=== PATIENT | female | born 1950 | race Caucasian/White ===

== ENCOUNTER → 2024-03-23 08:51 | Outpatient (REF) | payer OTHER, SELFPAY | LOC: HWRAD 08:51 | PROVIDERS: ATTENDING PHYSICIAN Family Medicine | DX: E04.1 Nontoxic single thyroid nodule (principal) | CPT/HCPCS: 76536 ==

== ENCOUNTER 2024-08-11 12:43 | Inpatient (IN) | payer OTHER, SELFPAY ==
[2024-08-11 07:39] VITALS: BP 150/82
--- NOTE | 2024-08-11 08:41 | ED.GENMED ---
History of Present Illness
General
Chief Complaint: Breathing Problem
Source: patient
Time Seen by Provider: 08/11/24 07:56
History of Present Illness
History of Present Illness:
74-year-old female presents emergency room complaining of right-sided chest pain. Pain occurs when she takes a deep breath primarily. She has noted shortness breath with exertion. Patient does have a history of pulmonary embolism. She has had
actually 2 episodes. Patient was advised to stay on anticoagulation but apparently did not wish to do so. She denies any recent travel or hospitalizations. No hemoptysis. Pain radiates to the back sometimes. Right thoracic pain also somewhat
worsened with movements such as twisting.
Past History
Past History
ED Past Medical History: GERD, Psychiatric (depression) and Other (DVT, pulmonary embolism, lumbar stenosis, migraines, anemia)
ED Past Surgical History: Orthopedic
Social History
Tobacco: Non-smoker
Alcohol: None
Drug: None
Phy Exam
Physical Exam
Physical Exam:
General: Awake, Alert, Oriented X3. No acute distress.
Vitals: unremarkable
Head: Atraumatic
Eyes: Pupils equal, EOMI
Throat: Airway intact, no exudates
Neck: Trachea midline
Lungs: Clear and equal b/l
Heart: Regular rate, no murmurs
Abd: Soft, Nontender, No pulsatile mass
Neuro: Nonfocal
Skin: Warm, dry, no rash
Extremities: pulses equal b/l, no edema
Scores
Heart Failure Risk
Heart Failure Risk Score: Not Applicable
Course
Orders/Labs/Results
Orders:
Orders
08/11/24 07:43
EKG [Electrocardiogram (*1)] Urgent
Reason for Study: Chest Pain
EKG- Treatment ONCE
08/11/24 08:29
Complete Blood Count/With Diff Urgent
Comprehensive Metabolic Panel Urgent
NT-proBNP Urgent
Comment: ADD ON
Troponin I Urgent
08/11/24 08:40
CT Chest Pe Study Urgent
Comment:
Reason For Exam: r pleuritic chest pain
Ketorolac [Toradol] 15 mg IV NOW STA
08/11/24 Lunch
Regular
08/11/24 10:06
Heparin 6,600 units IV NOW STA
Nursing to Place Non Medication Order As Directed
Physician Order: PTT 6 hours after initial start of Heparin infusion
Above order entered?: Yes
08/11/24 10:15
Heparin 54948 Units/250 ml 25,000 units in 250 ml IV PER PROTOCOL
Weight to be used for heparin protocol in kilograms (kg):: 82.5
Protocol:: DVT/PE
PTT Goal Range to be used:: PTT 73 to 111 seconds
Order type:: Initial
INITIAL Infusion Dose (UNITS/KG/hr) & then follow protocol:: 18 units/kg/hr
Infusion Dose in UNITS/hr & then follow protocol (UNITS/hr):: 1,500
INFUSION RATE in mL/hr & then follow protocol (mL/hr):: 15
For DVT/PE algorithm, re-bolus for low PTT?: Yes
PTT less than or equal to 64 seconds:: Re-bolus 80 units/kg (max 10,000units). Increase by 300 units/hr
(+ 3mL/hr)
PTT 64.1 to 72.9 seconds:: Re-bolus 40 units/kg (max 5,000 units). Increase by 200 units/hr
(+ 2mL/hr)
PTT 73 to 111 seconds:: Target Range. No change in rate.
PTT 111.1 to 130.9 seconds:: Decrease rate by 200 units/hr (- 2 mL/hr)
PTT 131 to 199.9 seconds:: HOLD for 1 hr. Then decrease by 300 units/hr (- 3mL/hr)
PTT greater than or equal to 200 seconds:: HOLD for 2 hrs & Notify Provider. Then decrease by 300 units/hr
(- 3mL/hr)
Lab follow-up:: Each change, PTT q6h until 2 consecutive are therapeutic. Then
PTT daily.
08/11/24 10:19
PTT Urgent
Comment: Obtain baseline before beginning heparin infusion if not already collected
08/11/24 10:22
Heparin 6,600 units IV PRN PRN
08/11/24 10:23
Heparin 3,300 units IV PRN PRN
08/11/24 11:38
Code Status As Directed
Resuscitation Status: Full Code
08/11/24 11:39
Add On- LAB Stat
Tests Added?: proBNP
Admit Patient As Directed
Co-Sign Provider:
Level of Care: Inpatient admission
Assign to:: Telemetry
Physician / Group: Octavio Holcomb
Diagnosis: unprovoked PE
Reason for Telemetry: Other
Other Reason for Telemetry: Pulmonary embolism
Date to Stop Telemetry: 08/13/24
Time to Stop Telemetry: 11:00
Reason for Hospitalization: Unprovoked pulmonary embolism
Expected length of stay greater than two midnights?: Yes
ELOS- Estimated Length of Stay in days: 3
I certify the patient meets the requirements for IP care: Yes
Activity As Directed
Activity Level: As Tolerated
Intake/ Output As Directed
Frequency: Per unit guidelines
Vital Signs As Directed
Frequency: Per unit guidelines
PRN Pain Medication Management As Directed
May give lesser potent ordered pain med per pt: Yes
preference::
Protocol:: Medication orders for pain may be administered in a
manner that supports deferring to patient preference
when the pt is:
- Requesting an ordered lesser potent pain medication.
Least to most potent pain medications are defined
as: acetaminophen < NSAID < tramadol < opioids
(morphine, oxycodone, hydromorphone).
- Requesting a lesser dose of the same medication IF
ORDERED.
- Requesting a less intrusive route of administration
if both routes are prescribed by the provider (PO <
IV).
08/11/24 11:41
Pulse Ox/cont/shift [RESP] Routine
Quantity: 1
Special Instructions: check O2 Sat Q2 hours and at each change in oxygen liter flow and FiO2
08/11/24 11:42
Echo 2D MMode Color/Doppler Routine
Reason for Study: pulmonary embolism
HEMATOLOGY CONSULT Routine
Consulting Provider: Harmeet Gonzalez
Was physician already notified: Yes
Reason for consult: unprovoked PE
Acetaminophen [Tylenol] 650 mg PO Q4HPRN PRN
HYDROmorphone [Dilaudid] 0.5 mg IV Q4HPRN PRN
Morphine Sulfate 2 mg IV Q4HPRN PRN
Pt Eval And Treat Routine
Activity Level: As Tolerated
08/11/24 11:46
Admit/Transfer Patient As Directed
Co-Sign Provider:
Level of Care: Inpatient admission
Assign to:: Telemetry
Physician / Group: octavio holcomb
Diagnosis: Unprovoked pulmonary embolism
Reason for Telemetry: Other
Other Reason for Telemetry: Pulmonary embolism
Date to Stop Telemetry: 08/13/24
Time to Stop Telemetry: 11:00
Reason for Hospitalization: Unprovoked pulmonary embolism
Expected length of stay greater than two midnights?: Yes
ELOS- Estimated Length of Stay in days: 3
I certify the patient meets the requirements for IP care: Yes
PRN Pain Medication Management As Directed
May give lesser potent ordered pain med per pt: Yes
preference::
Protocol:: Medication orders for pain may be administered in a
manner that supports deferring to patient preference
when the pt is:
- Requesting an ordered lesser potent pain medication.
Least to most potent pain medications are defined
as: acetaminophen < NSAID < tramadol < opioids
(morphine, oxycodone, hydromorphone).
- Requesting a lesser dose of the same medication IF
ORDERED.
- Requesting a less intrusive route of administration
if both routes are prescribed by the provider (PO <
IV).
08/11/24 11:50
US Periph Venous LOWER Ext Giovani Urgent
Comment:
Reason For Exam: PE
08/11/24 12:06
PULMONARY CONSULT Routine
Consulting Provider: Ravi Hou
Was physician already notified: Yes
Reason for consult: acute PE
08/11/24 17:09
PTT Urgent
08/12/24 06:00
Complete Blood Count/No Diff IN AM
Comprehensive Metabolic Panel IN AM
08/12/24 08:00
Polyethylene Glycol Powder [Miralax] 17 grams PO DAILY
08/13/24 06:00
Complete Blood Count/No Diff IN AM
Comprehensive Metabolic Panel IN AM
08/13/24 11:00
DC Protocol for Telemetry ONCE
DC Protocol for Telemetry ONCE
Abnormal Lab Results
08/11/24
08:29
WBC 11.2 H 10^3/uL
(4.8-10.8)
RBC 3.96 L 10^6/uL
(4.20-5.40)
MCH 33.3 H pg
(27.0-31.0)
Absolute Neuts (auto) 8.0 H 10^3/uL
(1.4-6.5)
Absolute Monos (auto) 0.8 H 10^3/uL
(0.1-0.6)
Lymphocytes % 19.0 L %
(20.5-51.1)
BUN 18 H mg/dl
(7-17)
Total Protein 6.1 L g/dl
(6.3-8.2)
08/11/24 08:29
08/11/24 08:29
Vital Signs
Initial and Last Documented VS:
Initial Vital Signs
Temp Pulse Resp BP Pulse Ox
97.6 F 77 18 150/82 98
08/11/24 07:39 08/11/24 07:39 08/11/24 07:39 08/11/24 07:39 08/11/24 07:39
Last Documented Vital Signs
Temp Pulse Resp BP Pulse Ox
97.6 F 76 9 139/73 97
08/11/24 07:39 08/11/24 12:00 08/11/24 12:00 08/11/24 09:00 08/11/24 11:18
MDM/Problems Addressed
Differential Diagnosis Includes:
Pulmonary embolism thoracic strain, spontaneous pneumothorax, pneumonia
MDM/Problems Addressed:
Patient presents with some subjective shortness of breath particular with exertion as well as pleuritic chest pain. Patient does have a history of PEs. CT was obtained which shows bilateral pulmonary embolism. Radiology describes the tumor burden
is moderate. CT also shows a pulmonary infarct. Given the above the patient should be hospitalized for least 24 hours of observation.
*Radiology
Radiology exam reviewed: radiology read reviewed
*Pulse Oximetry
Patient hypoxic: no
*EKG
Interpreted by ED Provider?: Yes
Heart Rate: 75
Rate: normal
Rhythm: sinus
[place]: normal axis
Interval: normal interval
QRS Pattern: normal QRS
Ischemia: no ischemia
*Nursing Home Assistant Interpretation
Rate: normal
Interpretation: normal
Rhythm: sinus
*Critical Care Note
Total Time (30-74mins, 75-104mins- exclusive of procedures): Not Applicable
Patient Management
Discussion with other providers: Hospitalist
ED Attending Note
-
Portions of this chart may have been created with voice recognition software.� Occasional wrong word or��sound alike� substitutions may have occurred due to the inherent limitations of voice recognition software.
Discharge Plan
Departure
Patient Disposition: Admit
Date of Disposition: 08/11/24
Time of Disposition: 10:10
Admit to: IMU
Presentation/result/management discussed w/ accepting MD/DO: Hospitalist
Condition: Fair
Discharge Problem:
Pulmonary embolism and infarction
Interventions
Interventions:
*Risk Screen - Suicide Last Done: 08/11/24 07:39
*General Assessment Last Done: 08/11/24 07:39
*Neglect/Abuse Screening Last Done: 08/11/24 07:39
ED- Fall Risk Assessment Last Done: 08/11/24 11:18
*ED COVID-19 Vaccine History Last Done: 08/11/24 07:39
*Nursing Disposition Last Done: 08/11/24 13:04
ED- Cardiac Assessment Last Done: 08/11/24 11:18
ED- Pulmonary Assessment Last Done: 08/11/24 11:18
Discharge Date and Time
Discharge Date/Time: 08/11/24 13:06
[2024-08-11 08:46] LABS: % Basophils 0.7 % (0-2); % Eosinophils 1.9 % (0-6); % Immature Granulocytes 0.4 % (0-0.5); % Monocytes 6.8 % (1.7-9.3); % Neutrophils 71.2 % (42.2-75.2); Absolute Basophils 0.1 10^3/uL (0-0.2); Absolute Eosinophils 0.2 10^3/uL (0-0.7); Absolute Lymphocytes 2.1 10^3/uL (1.2-3.4); Absolute Monocytes 0.8 10^3/uL (0.1-0.6); Hematocrit 39.1 % (37.0-47.0); Hemoglobin 13.2 g/dL (12.0-16.0); Mean Corp Hgb Conc. 33.8 g/dL (33.0-37.0); Mean Corpuscular Hgb 33.3 pg (27.0-31.0); Mean Corpuscular Volume 98.7 fL (81.0-99.0); Mean Platelet Volume 9.7 fL (7.4-10.4); Nucleated Red Blood Cells % 0 %; Platelet Count 261 10^3/uL (130-400); Red Blood Cell Count 3.96 10^6/uL (4.20-5.40); Red Cell Dist. Width 13.1 % (11.5-14.5); White Blood Cell Count 11.2 10^3/uL (4.8-10.8)
[2024-08-11 08:55] LABS: ALT (SGPT) 21 U/L (0-35); AST (SGOT) 28 U/L (14-36); Albumin 3.5 g/dl (3.5-5.0); Alkaline Phosphatase 122 U/L (38-126); Blood Urea Nitrogen 18 mg/dl (7-17); Calcium 9.1 mg/dl (8.4-10.2); Carbon Dioxide 28 mmol/L (22-30); Chloride 104 mmol/L (98-107); Glucose 98 mg/dl (70-99); Potassium 4.1 mmol/L (3.5-5.1); Sodium 142 mmol/L (135-145); Total Bilirubin 0.4 mg/dl (0.2-1.3); Total Protein 6.1 g/dl (6.3-8.2); eGFR > 60.00
[2024-08-11 09:00] VITALS: BP 139/73
[2024-08-11] MEDS: TORADOL 15 MG IV (09:02)
[2024-08-11 09:06] LABS: Troponin I < 0.012 ng/ml
[2024-08-11 10:04] VITALS: BMI 30.3
[2024-08-11 10:43] LABS: APTT 28.5 Sec (23.4-35.0)
[2024-08-11] MEDS: HEPARIN 6600 UNITS IV (11:06)
[2024-08-11] MEDS: HEPARIN 25000 UNITS/250 ML IV (11:09)
--- NOTE | 2024-08-11 11:34 | HPS.HSE ---
Addendum entered and electronically signed by Octavio Anguiano MD 08/11/24 17:45:
74 female history of VTE x 2 in the past IBS and anxiety GERD who presents with acute onset chest discomfort shortness of breath that began yesterday in the morning and progressively got worse throughout the day. Without improvement. Denies
history of malignancy trauma OCP smoking. Admits to son being diagnosed with factor V Leyden however she was negative for this.
CT demonstrating mild bilateral pulmonary thromboembolism extending from the lobar into the segmental/subsegmental branches of the bilateral lungs. Without evidence of hypoxia. She had 1 episode with a respiratory rate of 32 per EMR documentation.
CBC BMP unremarkable. Troponin negative.
Physical Exam
NAD, resting comfortably in bed
Scleral anicteric
Moist mucous membranes
No JVD
CTA bilateral
Normal S1-S2 no murmurs
Soft nontender nondistended bowel sounds active
Left leg slightly more than right leg
Moves extremities spontaneously
AAOx3
Assessment and Plan
Acute PE, unprovoked
-Pesi score 93, intermediate risk, Class III 3.2-7.1% 30day mortality
-Check DVT Study
-Check 2d echo assess for right heart strain
-Hep gtt with plans to transition to PO DOAC
-Will need outpatient Heme follow up for hypercoag work up
-Will likely need to remain on lifelong therapy
-Outpatient age appropriate cancer screening
GERD
-Continue PPI
Migraine
-Cotnnue Wellbutrin,Aimovig,Topamax
Original Note:
Family Physician
-
Family Physician: Marsha Willoughby
Chief Complaint
-
Unprovoked pulmonary embolism
History of Present Illness
74 female past medical history of 2 provoked PEs and 1 provoked DVT presents to the emergency department with 1 day of shortness of breath and chest pain.Other past medical history includes migraines, depression/anxiety, GERD and arthritis. She
previously had a conversation about taking lifelong anticoagulation, however it was decided that she would only take 6 months of anticoagulation. At the time of admission she is not on anticoagulation at home. She reports that her son has factor V
Leiden mutation, however her hypercoagulable workup was negative previously. In the emergency department patient had a CT PE study which demonstrated moderate bilateral pulmonary thromboembolus extending from the lobar into segmental/subsegmental
branches of the bilateral lung, as well as an upper left lobe pulmonary infarct. Patient was started on IV heparin.
Medical History
Past Medical History
Past Medical History: Reports GERD and Other (Remote DVT during approximately 40 years ago, DVT/PE in 2011-provoked, PE 2021-provoked. GERD, depression, lumbar stenosis, migraines)
Past Surgical History: Reports Orthopedic
Social History
Tobacco: Former Smoker
Alcohol: Occasional
Drug: None
Family History
Family History: Not pertinent
Allergies / Home Medications
Allergies reflects when Allergies were last updated in [facility].
Home Medications with original date entered in [facility]
Allergy/Medication List:
Allergies
Allergy/AdvReac Type Severity Reaction Status Date / Time
Nitrate Analogues Allergy MIGRAINES Verified 08/11/24 07:41
shrimp Allergy JUMBO-MIGRA Verified 08/11/24 07:41
NIKIA
Home Medications
biotin 2,500 mcg capsule 5,000 mcg PO DAILY Supplement ##0 10/11/13
bupropion HCl 300 mg 24 hr tablet, extended release 300 mg PO DAILY depression/anxiety 10/11/13
calcium 250 mg (as carbonate)-vitamin D3 3.125 mcg (125 unit) tablet (Oyster Shell + D3) 1 tab PO DAILY Supplement 10/11/13
calcium polycarbophil 625 mg tablet (FiberCon) 1,250 mg PO DAILY Constipation 10/11/13
esomeprazole magnesium 40 mg capsule,delayed release (Nexium) 40 mg PO HS Gastrointestinal issue 10/11/13
multivitamin 1 tab PO DAILY Supplement 10/11/13
erenumab-aooe 140 mg/mL subcutaneous auto-injector (Aimovig Autoinjector) 140 mg SC QMONTH Migrane-due 08/13/24 08/23/22
celecoxib 200 mg capsule (Celebrex) 200 mg PO DAILY pain 11/19/22
lysine 1,000 mg tablet 1,000 mg PO SUTUTHSA Supplement 11/19/22
potassium gluconate 550 mg tablet 1,100 meq PO PRN PRN supp 11/19/22
zolmitriptan 5 mg nasal spray 1 spray intranasal Q2H PRN headache 11/19/22
Lactobacillus acidophilus (Acidophilus chewable tablet) 1 tab PO SUTUTHSA probiotic 08/11/24
hydrocodone 5 mg-acetaminophen 325 mg tablet 1 tab PO BIDPRN PRN arthritis pain 08/11/24
Review of Systems
-
A 12 point ROS was completed and negative except as noted: No
Constitutional: Reports No Symptoms
Respiratory: Reports Other (Shortness of breath worse with exertion, pleuritic chest pain); Denies Hemoptysis
Cardiac: Reports No Symptoms
Abdomen/GI: Reports No Symptoms
: Reports No Symptoms
Physical Exam
Vital Signs
Vital Signs
Temp Pulse Resp BP Pulse Ox
97.6 F 79 21 139/73 97
08/11/24 07:39 08/11/24 11:00 08/11/24 11:00 08/11/24 09:00 08/11/24 11:18
Physical Exam
General: Well Developed, Well Nourished, No Apparent Distress, Comfortable and Conversant
Respiratory: Clear
Cardiac: S1/S2 and Regular Rhythm
GI: Soft, Non Tender and Non Distended
Musculoskeletal: No Edema and Other (Negative Homans' sign, lower extremities nontender)
Skin: Warm and Dry
Neuro: Awake, Alert, Oriented and AO x 3
Psych: Calm and Intact Judgment/Insight
Laboratory Results
-
08/11/24 08:29
08/11/24 08:29
Laboratory Results
APTT 28.5 Sec (23.4-35.0) 08/11/24 10:19
Total Bilirubin 0.4 mg/dl (0.2-1.3) 08/11/24 08:29
AST 28 U/L (14-36) 08/11/24 08:29
ALT 21 U/L (0-35) 08/11/24 08:29
Alkaline Phosphatase 122 U/L (38-126) 08/11/24 08:29
Troponin I < 0.012 ng/ml 08/11/24 08:29
Data Reviewed
-
CT Scan: Report Reviewed by me and Discussed with Physician
Lab Data: Labs Reviewed by me and Discussed with Physician
Impression/Plan
-
IMPRESSION:
72-year-old female with past medical history of multiple provoked DVT/PE currently not on anticoagulation presents for shortness of breath and found to have an unprovoked pulmonary embolism.
PLAN:
#Unprovoked pulmonary embolism
CT demonstrated segmental/subsegmental pulmonary embolism with upper left lobe infarct
IV heparin drip per DVT protocol
Hematology consult pending
Pulmonology consult pending
Every 2 hour pulse ox checks
Currently not requiring oxygen, satting well on room air
Pain management with Tylenol, morphine and Dilaudid as needed
2D echo pending
Admit to telemetry
PT OT
#GERD
Continue home pantoprazole daily
#Anxiety/depression
Continue home bupropion extended release
DVT prophylaxis: Heparin drip
Diet: Regular
CODE STATUS: Full code
[2024-08-11 13:11] VITALS: BP 152/79
[2024-08-11 13:12] LABS: NT-proBNP 126 pg/ml
--- NOTE | 2024-08-11 13:12 | CON.PUL ---
Consultation
Consultation Request
Date/Time Consultation Requested: 08/11/2024 - 1206
Date/Time Consultation Performed: 08/11/2024 - 2
Requesting Provider: Dr. Anguiano
Performing Provider: Dr. Hou
Reason for Consultation: Acute PE
Medical History
-
Chief Complaint: Shortness of breath + left-sided chest pain
History of Present Illness:
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
presents with shortness of breath and left-sided chest pain. She says that the chest pain starts right near her left breast and radiates to the back, feeling similar to when she had her last pulmonary embolism in 2021. Back in 2021, she also had a
right lower extremity DVT and was treated with Eliquis for 6 months. She saw hematology (she is not sure who exactly she saw) and she eventually was taken off AC although her PCP wanted her to stay on it. Her prior PE before that was in 09/2012
and she also had a DVT at that time as well. She believes she was treated with Xarelto at the time. She is not sure if she had a DVT in that same leg as in 2021. She currently denies any leg pain. She personally does not have any history of
cancer. She denies a family history of clots although her son has factor V Leiden and is chronically on anticoagulation that she believes is Xarelto. 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 In the ER she was afebrile to 97.6 �F, pulse rate 77, breathing at 18 breaths/min, BP 150/82 and saturating 98% on room air. Labs showed mild leukocytosis to 11.2, troponin negative at
<0.012, and proBNP 126. CTA chest was done showing moderate bilateral pulmonary embolism extending from the lobar into the segmental/subsegmental branches of both lungs with a suspected left upper lobe pulmonary infarct. Heparin drip started in
the ER and she was also given Toradol for her pain. She was admitted to telemetry under the hospitalist service and now pulmonary consulted for additional management/recommendations.
When I saw the patient she was resting in bed, on room air breathing comfortably, on heparin drip saying that she feels better already. She says that her left-sided chest discomfort is much better and she is not short of breath at rest. She is
saturating 97% on room air, breathing at 16 breaths/min, BP 152/79 and heart rate 75. She denies IBRAHIM, abdominal pain, nausea, vomiting, diarrhea, fevers or chills.
PMHx: Chronic migraines, GERD, history of DVT/PE (09/2012 +2021), IBS, osteoarthritis, history of right-sided pneumonia (08/2022)
PSHx: Appendectomy, vertical banded gastroplasty (1991), right hip replacement (03/2018), left hip replacement
Past Medical History
Past Medical History: Other (Above as per HPI)
Past Surgical History: Other (Above as per HPI)
Social History
Tobacco: Former Smoker (Quit in 1972 after smoking 0.5 PPD x 3 years)
Alcohol: Occasional
Drug: None
Personal:
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
Family History
Family History: Cancer (Mother: Colon cancer; Brother: Large cell neuroendocrine cancer; paternal grandmother: Leukemia), Diabetes (Mother) and Other (Father: CHF + COPD; daughter: Ulcerative colitis, primary sclerosing cholangitis s/p liver
transplant now ; mother: CHF; son: Factor V Leiden abnormality on chronic anticoagulation)
Allergies / Home Medications
Allergies
Allergy/AdvReac Type Severity Reaction Status Date / Time
Nitrate Analogues Allergy MIGRAINES Verified 08/11/24 07:41
shrimp Allergy JUMBO-MIGRA Verified 08/11/24 07:41
NIKIA
Home Medications
�Medication �Instructions �Recorded �Confirmed �Last Taken �Type
biotin 2,500 mcg capsule 5,000 mcg PO DAILY Supplement ##0 10/11/13 08/11/24 11/19/22 08:00 History
5000 mcg
bupropion HCl 300 mg 24 hr tablet, 300 mg PO DAILY depression/anxiety 10/11/13 08/11/24 08/11/24 History
extended release
calcium 250 mg (as 1 tab PO DAILY Supplement 10/11/13 08/11/24 08/09/24 History
carbonate)-vitamin D3 3.125 mcg
(125 unit) tablet (Oyster Shell +
D3)
calcium polycarbophil 625 mg 1,250 mg PO DAILY Constipation 10/11/13 08/11/24 08/11/24 History
tablet (FiberCon)
esomeprazole magnesium 40 mg 40 mg PO HS Gastrointestinal issue 10/11/13 08/11/24 08/10/24 History
capsule,delayed release (Nexium)
multivitamin 1 tab PO DAILY Supplement 10/11/13 08/11/24 08/11/24 History
erenumab-aooe 140 mg/mL 140 mg SC QMONTH Migrane-due 08/23/22 08/11/24 11/19/22 08:00 History
subcutaneous auto-injector 08/13/24 140 mg
(Aimovig Autoinjector)
celecoxib 200 mg capsule (Celebrex) 200 mg PO DAILY pain 11/19/22 08/11/24 08/11/24 History
lysine 1,000 mg tablet 1,000 mg PO SUTUTHSA Supplement 11/19/22 08/11/24 08/11/24 History
potassium gluconate 550 mg tablet 1,100 meq PO PRN PRN supp 11/19/22 08/11/24 08/11/24 History
zolmitriptan 5 mg nasal spray 1 spray intranasal Q2H PRN headache 11/19/22 08/11/24 Unknown History
Lactobacillus acidophilus 1 tab PO SUTUTHSA probiotic 08/11/24 08/11/24 08/11/24 History
(Acidophilus chewable tablet)
hydrocodone 5 mg-acetaminophen 325 1 tab PO BIDPRN PRN arthritis pain 08/11/24 08/11/24 08/10/24 History
mg tablet
Review of Systems
-
History Source: Patient
All other systems: Negative unless noted
Vitals / Labs / Diagnostic Testing
Vital Signs
Temp Pulse Resp BP Pulse Ox
98.1 F 84 15 139/69 95
08/11/24 19:36 08/11/24 19:36 08/11/24 19:36 08/11/24 19:36 08/11/24 19:36
Lab Data
08/11/24 08:29
08/11/24 08:29
Laboratory Results
08/11/24 08/11/24
10:19 18:20
APTT 28.5 124.0 H
Diagnostic Testing:
Physical Exam
-
HEENT: Normocephalic and Anicteric
Cardiovascular: S1/S2, Murmur (negative), Rub (negative) and Peripheral Edema (negative)
Respiratory: Wheeze (negative), Rales (Bibasilar), Rhonchi ([place] in left upper lobe upon expiration) and Non-Labored Respirations
GI: Soft, Non Distended, Non Tender and Normal Bowel Sounds
Neurology: AO x 3 and Tremors (negative)
Skin: Warm and Dry
General: Respiratory Distress (negative), Comfortable, Chills (negative) and Sweats (negative)
Assessment
-
Assessment: 74-year-old female with a remote tobacco smoking history (quit 1972 with 1.5-pack-year history) with a PMHx of DVT/PE x 2 (2011+2021), chronic migraines, IBS, osteoarthritis, GERD and history of right side pneumonia (08/2022) who
presents with shortness of breath and left-sided chest pain. She says that her symptoms are similar to her recent PE in 08/2022. She underwent a CTA chest showing bilateral pulmonary embolism without RV strain. She was started on heparin drip and
admitted to telemetry under the hospitalist service. Pulmonary service consulted for additional recommendations/management decisions.
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
Impression:
#Acute submassive bilateral pulmonary embolism without radiographic, echocardiographic or chemical evidence of RV strain� seemingly unprovoked
#Leukocytosis, likely reactive
#Chronic RLE DVT
#History of DVT/PE x 2 (08/2022+ 09/2012) - both times treated with anticoagulation and then later stopped
#GERD
#History of right-sided perihilar pneumonia (08/2022)
#Family history of colon cancer (mother side), and brother had neuroendocrine cancer and 9 months later
#Remote tobacco smoking history (quit 1972 with 1.5-pack-year history)
Plan:
- Continue w/ systemic parenteral anticoagulation w/ heparin drip for at least 24 hrs before transitioning to NOAC, preferably Eliquis-->as long as she's doing well tomorrow, would TRX to Eliquis on 08/12
- Case management consult to assess if Eliquis is affordable
- Given that this is her third episode of an acute PE, would consult hematology for their input in terms of which NOAC to transition to and to plug her in for outpatient follow-up for hypercoagulable workup
- She reports that she is up-to-date with her age-appropriate preventative procedures, with last colonoscopy in 11/2019 which showed diverticulosis in the sigmoid colon with internal hemorrhoids and no polyps seen and no specimens collected (next
C-scope in 2024); last mammogram in 06/2023 which showed no radiographic evidence of malignancy (next mammogram in 08/15/2024)
- Lower extremity duplex shows a chronic right lower extremity DVT with no evidence of LLE DVT
- Transthoracic echo shows preserved LV EF at 55 to 60% with normal RV size and function with normal PASP of 30 mmHg with normal RA size --> no need to recheck unless she clinically worsens
- Her troponin + proBNP were also within normal limits --> no need to continue trending
- Her leukocytosis is likely reactive and not due to an infection; continue to trend and monitor for fevers
- Monitor CBC while on heparin gtt, keeping Hb>7 and plt>50k
- Maintain SpO2 >90-94% with supplemental O2 as needed
- Incentive spirometer encouraged 10x per hour for at least 4 hrs a day
- Replete electrolytes with K>4, Mg>2
- Maintain euglycemia with goal BG >100 and <180
- prn nebulized bronchodilators - not currently bronchospastic
- DVT ppx: heparin gtt
Pulmonary service will continue to follow along. Outpatient follow-up will be arranged for full PFTs. She is also recommended to see hematology as an outpatient for hypercoagulable workup and for discussion of duration of anticoagulation, which I
suspect will be lifelong given that this is her third episode of VTE.
Data:
CTA Chest 08/11/2024:
1. Moderate bilateral pulmonary thromboembolus extending from the lobar into the segmental/subsegmental branches of the bilateral lungs.
2. Left upper lobe pulmonary infarct.
TTE 08/11/2024:
1. Normal LV size and function with EF 55-60%
2. No sign of right heart pressure or volume overload
Total time spent today was 57 minutes for this encounter. Time includes reviewing laboratory test/imaging results, reviewing pertinent medical records, obtaining and reviewing medical history, performing an appropriate exam, ordering medications,
tests and procedures. Time also includes documentation of this encounter, coordinating patient care and communicating with other healthcare professionals. Total time does not include separately billed tests performed on this date of service.
--- NOTE | 2024-08-11 14:15 | PTOTSP ---
Chart reviewed, spoke with nurse. Therapist spoke with the patient, who reports she is functionally independent with no balance issues. Patient is agreeable to PT signing off and is aware our services are available if needed.
[2024-08-11 19:36] VITALS: BP 139/69
[2024-08-11] MEDS: PROTONIX 40 MG PO (20:29)
[2024-08-11] MEDS: MORPHINE SULFATE 2 MG IV (20:34)
[2024-08-11 23:32] VITALS: BP 114/59
[2024-08-12] MEDS: DILAUDID 0.5 MG IV ×2 (01:24→06:26)
[2024-08-12 01:46] LABS: APTT 147.1 Sec (23.4-35.0)
[2024-08-12 03:25] VITALS: BP 117/71
[2024-08-12 07:41] VITALS: BP 121/72
[2024-08-12] MEDS: HEPARIN 25000 UNITS/250 ML IV (08:07)
[2024-08-12] MEDS: OSCAL 500 + D 500 MG PO (08:13)
[2024-08-12] MEDS: THERAGRAN 1 TABLET PO (08:13)
[2024-08-12] MEDS: WELLBUTRIN XL (24 hour extended release) 300 MG PO (08:13)
[2024-08-12] MEDS: FIBERCON 1250 MG PO (08:13)
[2024-08-12 08:57] LABS: Hematocrit 37.3 % (37.0-47.0); Hemoglobin 12.5 g/dL (12.0-16.0); Mean Corp Hgb Conc. 33.5 g/dL (33.0-37.0); Mean Corpuscular Hgb 33.4 pg (27.0-31.0); Mean Corpuscular Volume 99.7 fL (81.0-99.0); Mean Platelet Volume 9.3 fL (7.4-10.4); Platelet Count 234 10^3/uL (130-400); Red Blood Cell Count 3.74 10^6/uL (4.20-5.40); Red Cell Dist. Width 13.3 % (11.5-14.5); White Blood Cell Count 11.7 10^3/uL (4.8-10.8)
[2024-08-12 09:06] LABS: APTT 66.9 Sec (23.4-35.0)
[2024-08-12 09:41] LABS: ALT (SGPT) 20 U/L (0-35); AST (SGOT) 29 U/L (14-36); Albumin 3.4 g/dl (3.5-5.0); Alkaline Phosphatase 132 U/L (38-126); Blood Urea Nitrogen 15 mg/dl (7-17); Calcium 8.9 mg/dl (8.4-10.2); Carbon Dioxide 25 mmol/L (22-30); Chloride 103 mmol/L (98-107); Estimated Creatinine Clearance 66 ml/min; Glucose 102 mg/dl (70-99); Potassium 4.6 mmol/L (3.5-5.1); Sodium 141 mmol/L (135-145); Total Bilirubin 0.4 mg/dl (0.2-1.3); Total Protein 6.1 g/dl (6.3-8.2); eGFR > 60.00
--- NOTE | 2024-08-12 09:45 | CON.ONC ---
Documented by User: Philomena Garcia MD, Resident 08/12/24 12:57
Impression
Impression
74-year-old female known to Dr. Richardson Granda with past medical history of DVT and PE x 2 (provoked 2011 and unprovoked 2021) admitted for acute pulmonary embolism:
# Acute pulmonary embolism
- Unprovoked
- PESI score 93
- No hypoxia, tachycardia, tachypnea
- Was started on heparin drip, now on apixaban 10 mg p.o. twice daily
- Outpatient follow-up with Dr. Granda for lifelong anticoagulation therapy and hypercoagulability work-up
- No signs of right heart strain on echo
- Chronic RLE DVT found on lower extremity Duplex
- Mild bilateral pulmonary thromboembolism extending from the lobar into the segmental/subsegmental branches
Migraine
- Continue home meds
GERD
- Continue home meds
Patient History
History of Present Illness
74-year-old female with past medical history of DVT, PE, GERD, migraine, anxiety, IBS, osteoarthritis, right-sided pneumonia and benign thyroid nodules presenting with acute onset left-sided chest pain radiating to the back and shortness of breath
since yesterday. Patient reports the pain is similar to her previous episode of pulmonary embolism in 2021. Upon admission, patient was not hypoxic and has had no tachycardia or tachypnea. Lower extremity duplex showed chronic right lower
extremity DVT and no evidence of left lower extremity DVT. Chest CT showed mild bilateral pulmonary thromboembolism extending from the lobar into the segmental/subsegmental branches and suspected left upper lobe pulmonary infarct. PESI score was 93
and she was started on heparin drip. Echocardiography showed no sign of right heart strain and EF 55 to 60%. Patient has had 2 prior episodes of pulmonary embolism in 2011 and 2021 for which she received 6 months of Eliquis. First episode in 2011
was provoked (had back surgery) but second episode in 2021 was unprovoked. Notes factor V Leiden in son but tested negative herself. Family history is positive for colon cancer in mother, large cell neuroendocrine cancer and bladder and ulcerative
colitis and PSC in daughter. She is a former smoker and drinks occasionally. She has had no recent surgery, long car rides, immobilization and no history of hormonal therapy. No personal history of cancer, last colonoscopy 2019 showed
diverticulosis and internal hemorrhoids and last mammography 2022 was negative for malignancy. We are consulted for transition to oral anticoagulant and evaluating the need for lifelong anticoagulation.
Past-Medical/Surgical History
Past medical history:
DVT during
PE 2011, 2021
GERD
Anxiety
Migraine
Osteoarthritis
IBS
Right-sided pneumonia 2021
Thyroid nodules (FNA benign) 2022
Psoriasis
Past surgical history:
Appendectomy
Right hip replacement
Left hip replacement
Gastroplasty
Patient Medication
�Medication �Instructions �Recorded �Confirmed �Last Taken �Type
biotin 2,500 mcg capsule 5,000 mcg PO DAILY Supplement ##0 10/11/13 08/11/24 11/19/22 08:00 History
5000 mcg
bupropion HCl 300 mg 24 hr tablet, 300 mg PO DAILY depression/anxiety 10/11/13 08/11/24 08/11/24 History
extended release
calcium 250 mg (as 1 tab PO DAILY Supplement 10/11/13 08/11/24 08/09/24 History
carbonate)-vitamin D3 3.125 mcg
(125 unit) tablet (Oyster Shell +
D3)
calcium polycarbophil 625 mg 1,250 mg PO DAILY Constipation 10/11/13 08/11/24 08/11/24 History
tablet (FiberCon)
esomeprazole magnesium 40 mg 40 mg PO HS Gastrointestinal issue 10/11/13 08/11/24 08/10/24 History
capsule,delayed release (Nexium)
multivitamin 1 tab PO DAILY Supplement 10/11/13 08/11/24 08/11/24 History
erenumab-aooe 140 mg/mL 140 mg SC QMONTH Migrane-due 08/23/22 08/11/24 11/19/22 08:00 History
subcutaneous auto-injector 08/13/24 140 mg
(Aimovig Autoinjector)
celecoxib 200 mg capsule (Celebrex) 200 mg PO DAILY pain 11/19/22 08/11/24 08/11/24 History
lysine 1,000 mg tablet 1,000 mg PO SUTUTHSA Supplement 11/19/22 08/11/24 08/11/24 History
potassium gluconate 550 mg tablet 1,100 meq PO PRN PRN supp 11/19/22 08/11/24 08/11/24 History
zolmitriptan 5 mg nasal spray 1 spray intranasal Q2H PRN headache 11/19/22 08/11/24 Unknown History
Lactobacillus acidophilus 1 tab PO SUTUTHSA probiotic 08/11/24 08/11/24 08/11/24 History
(Acidophilus chewable tablet)
hydrocodone 5 mg-acetaminophen 325 1 tab PO BIDPRN PRN arthritis pain 08/11/24 08/11/24 08/10/24 History
mg tablet
apixaban 5 mg tablet 5 mg PO BID PE 30 days #60 tabs 08/12/24 Unknown Rx
apixaban 5 mg tablet (Eliquis) 10 mg (2 x 5 mg) PO BID PE #13 tabs 08/12/24 Unknown Rx
Active Medications
Generic Name Dose Route Start Last Admin
Trade Name Freq PRN Reason Stop Dose Admin
Acetaminophen 650 mg 08/11/24 11:42
Acetaminophen 325 Mg Tablet PO 09/08/24 11:41
Q4HPRN PRN
mild pain/temp > 100.4 F
Apixaban 10 mg 08/12/24 09:00
Apixaban (Eliquis) 5 Mg Tablet PO 08/18/24 20:01
BID MAXI
Bupropion HCl 300 mg 08/12/24 08:00 08/12/24 08:13
Bupropion (24hr) Extended Release 300 Mg Tablet PO 09/09/24 07:59 300 mg
DAILY MAXI Administration
Calcium Polycarbophil 1,250 mg 08/12/24 08:00 08/12/24 08:13
Calcium Polycarbophil 625 Mg Tablet PO 09/09/24 07:59 1,250 mg
DAILY MAXI Administration
Calcium/Vitamin D 500 mg 08/12/24 08:00 08/12/24 08:13
Calcium Carbonate 500 Mg/Vitamin D 5 Mcg (200 Units) Tablet PO 09/09/24 07:59 500 mg
DAILY MAXI Administration
Hydromorphone HCl 0.5 mg 08/11/24 11:42 08/12/24 06:26
Hydromorphone 0.5 Mg/0.5 Ml Syringe IV 08/25/24 11:41 0.5 mg
Q4HPRN PRN Administration
severe pain
Lactobacillus/Bifidobacterium 1 cap 08/13/24 08:00
Lactobac/Bifidobac (Visbiome) PO 09/10/24 07:59
SuTuThSa@0800 MAXI
Morphine Sulfate 2 mg 08/11/24 11:42 08/11/24 20:34
Morphine 2 Mg/Ml Syringe IV 08/25/24 11:41 2 mg
Q4HPRN PRN Administration
moderate pain
Multivitamins Therapeutic 1 tablet 08/12/24 08:00 08/12/24 08:13
Multivitamin Tablet PO 09/09/24 07:59 1 tablet
DAILY MAXI Administration
Pantoprazole Sodium 40 mg 08/11/24 22:00 08/11/24 20:29
Pantoprazole 40 Mg Delayed Release Tablet PO 09/08/24 21:59 40 mg
HS MAXI Administration
Polyethylene Glycol 17 grams 08/12/24 08:00 08/12/24 08:14
Polyethylene Glycol Powder 17 Grams Packet PO 09/09/24 07:59 Not Given
DAILY MAXI
Sodium Chloride 0 flush 08/11/24 15:00
Sodium Chloride 0.9% (Flush) Syringe IV 09/08/24 14:59
PER PROTOCOL MAXI
Review of Systems
-
History Source: Patient
Constitutional: Reports No Symptoms
EENT: Reports No Symptoms
Respiratory: Reports Other (Chest pain)
Cardiac: Reports No Symptoms
GI: Reports No Symptoms
Breast: Reports No Symptoms
: Reports No Symptoms
Musculoskeletal: Reports No Symptoms
Skin: Reports No Symptoms
Neuro: Reports No Symptoms
Endocrine: Reports No Symptoms
Hematologic/Lymphatic: Reports No Symptoms
Psych: Reports No Symptoms
Physical Exam
-
General: Well Developed, Well Nourished and Obese
Cardiology: Normal Sinus Rhythm, S1 and S2
Pulmonary: Clear
GI: Soft and Normal Bowel Sounds
Genito-Urinary: No Costovertebral Tenderness
Musculoskeletal: No Clubbing, No Cyanosis and No Edema
Extremities: Pulses Present
Psych: Calm
Labs
Lab Results
WBC 11.7 10^3/uL (4.8-10.8) H 08/12/24 08:44
RBC 3.74 10^6/uL (4.20-5.40) L 08/12/24 08:44
Hgb 12.5 g/dL (12.0-16.0) 08/12/24 08:44
Hct 37.3 % (37.0-47.0) 08/12/24 08:44
MCV 99.7 fL (81.0-99.0) H 08/12/24 08:44
MCH 33.4 pg (27.0-31.0) H 08/12/24 08:44
MCHC 33.5 g/dL (33.0-37.0) 08/12/24 08:44
RDW 13.3 % (11.5-14.5) 08/12/24 08:44
Plt Count 234 10^3/uL (130-400) 08/12/24 08:44
MPV 9.3 fL (7.4-10.4) 08/12/24 08:44
Abs Immat Gran (auto) 0.0 10^3/uL (0-0.05) 08/11/24 08:29
Absolute Neuts (auto) 8.0 10^3/uL (1.4-6.5) H 08/11/24 08:29
Absolute Lymphs (auto) 2.1 10^3/uL (1.2-3.4) 08/11/24 08:29
Absolute Monos (auto) 0.8 10^3/uL (0.1-0.6) H 08/11/24 08:29
Absolute Eos (auto) 0.2 10^3/uL (0-0.7) 08/11/24 08:29
Absolute Basos (auto) 0.1 10^3/uL (0-0.2) 08/11/24 08:29
Immature Gran % 0.4 % (0-0.5) 08/11/24 08:29
Neutrophils % 71.2 % (42.2-75.2) 08/11/24 08:29
Lymphocytes % 19.0 % (20.5-51.1) L 08/11/24 08:29
Monocytes % 6.8 % (1.7-9.3) 08/11/24 08:29
Eosinophils % 1.9 % (0-6) 08/11/24 08:29
Basophils % 0.7 % (0-2) 08/11/24 08:29
Creatinine 0.8 mg/dL (0.6-1.0) 08/12/24 08:44
Vital Signs
Vital Signs
Temp Pulse Resp BP Pulse Ox
97.8 F 75 16 121/72 94
08/12/24 07:41 08/12/24 07:41 08/12/24 07:41 08/12/24 07:41 08/12/24 07:41

Documented by User: Walker Mckeon MD 08/12/24 13:06
Plan
Plan
Hematology Addendum:
Patient case reviewed and agree w/ resident note and plan
-h/o recurrent VTE - known to Dr. Granda
-now w/another PE
-agree w/ anticoagulation for acute management of PE
-w/ multiple prior VTE events agree w/ consideration of long-term anticoagulation following tx of PE for potential risk reduction of recurrence
-f/u will be arranged w/ Dr. Granda for additional discussion in 8-10 weeks
[2024-08-12] MEDS: ELIQUIS 10 MG PO (09:46)
--- NOTE | 2024-08-12 10:49 | W.PN.HOSP.TC ---
Addendum entered and electronically signed by Octavio Anguiano MD 08/12/24 13:11:
stop hep gtt, transition to po
cm consulted for eliquis pricign
sample provided
outpt cancern screening
outpt hem follow up for hypercoag work up
outpt pulm follow up
More than 30 minutes spent in discharge including
Final examination of the patient
Summarizing hospital stay
Instructions for continuing care to all relevant caregivers
Preparation of discharge records, prescriptions, and referral forms
Total time spent (in minutes): 33mins
Original Note:
Today's Communication/Plan
-
Discharge home on oral Eliquis with outpatient hematology follow-up
Discontinue IV heparin drip
Assessment / Plan
Assessment / Plan
IMPRESSION:
74-year-old female with past medical history of multiple provoked DVT/PE currently not on anticoagulation presents for shortness of breath and found to have an unprovoked pulmonary embolism.
PLAN:
#Unprovoked pulmonary embolism
CT demonstrated segmental/subsegmental pulmonary embolism with upper left lobe infarct
Patient reports being up-to-date on age-appropriate cancer screenings
IV heparin drip per DVT protocol
Hematology consult with follow-up outpatient
Every 2 hour pulse ox checks
Currently not requiring oxygen, satting well on room air
Pain management with Tylenol, morphine and Dilaudid as needed
2D echo demonstrated LV EF 55 to 60% with normal RV size and function, normal PSAP 30 with normal RA size
Troponins negative and BNP within normal limits
Admit to telemetry
Lower extremity Doppler shows chronic right lower extremity DVT with no evidence of left lower extremity DVT
Will transition from heparin drip to oral Eliquis, to continue at outpatient. likely indefinitely
adult basic education manager consult for oral Eliquis affordability
#GERD
Continue home pantoprazole daily
#Anxiety/depression
Continue home bupropion extended release
DVT prophylaxis: Heparin drip
Diet: Regular
CODE STATUS: Full code
Anticipated Discharge: Today
Subjective/Interval History
-
Date of Service: August 12, 2024
No acute events overnight, breathing comfortably on room air
Objective Data
-
Labs:
Laboratory Results
08/12/24 08/12/24 08/12/24
01:20 08:44 08:44
WBC 11.7 H
Hgb 12.5
Hct 37.3
Plt Count 234
APTT 147.1 H Cancelled 66.9 H
Sodium 141
Potassium 4.6
Chloride 103
Carbon Dioxide 25
BUN 15
Creatinine 0.8
Glucose 102 H
Calcium 8.9
Total Bilirubin 0.4
AST 29
ALT 20
Alkaline Phosphatase 132 H
Vital Signs:
Vital Signs
Temp Pulse Resp BP Pulse Ox
97.8 F 75 16 121/72 94
08/12/24 07:41 08/12/24 07:41 08/12/24 07:41 08/12/24 07:41 08/12/24 07:41
I&O
08/11/24 08/12/24 08/13/24
06:59 06:59 06:59
Intake Total 960 / 960
Balance 960 / 960
Review of Systems
-
Constitutional: Reports No Symptoms
Respiratory: Reports Pleurisy and Other (No shortness of breath at rest); Denies Hemoptysis or Trouble Breathing
Cardiac: Reports No Symptoms
Abdomen/GI: Reports No Symptoms
Physical Exam
-
General: Well Developed, Well Nourished, No Apparent Distress, Comfortable and Conversant
Respiratory: Clear to Auscultation
Cardiac: Regular Rhythm and S1/S2
GI: Soft, Nontender and Nondistended
Musculoskeletal: No Edema
Neuro: Awake, Alert, Oriented and AO x 3
Psych: Intact Judgement/Insight
Data Reviewed
-
CT Scan: Report Reviewed by me and Discussed with Physician
Ultrasound: Report Reviewed by me and Discussed with Physician
Labs: Labs Reviewed by me and Discussed with Physician
--- NOTE | 2024-08-12 11:20 | CM ---
CM following re: discharge planning.
Reviewed pt's chart, met with pt.
Pt is a 74 year old female, admitted with primary dx of PE.
Pt reports she lives alone in an apartment 1st floor, 1 step to enter, has 2 supportive sons, one son 10 years ago. Emotional support offered and provided. Pt reports she has a cane, a walker, does not use them, shower chair, works and
drives.
Aubrie contreras checked with [facility] pharmacist:
10 days 10 mg BID- $18.78
5 mg BID - $25.00 for 30 day supplies.
30 days free coupon provided and will cover 10 days 10 mg BID
$10.00 monthly coupon provided
Pt expressed her appreciation.
Discharge order noted. Pt is aware, expressed her agreement and she stated she will drive home. Pt stated she has Medicare part A and she showed me Medicare card. IMM reviewed, placed on chart, pt has a copy.
PCP: Marsha Willoughby
Pharmacy: [facility]
D./C plan: home with no needs. Pt will drive home.
--- NOTE | 2024-08-12 14:28 | W.DCSUMMARY ---
Discharge Summary
Discharge Data
Date of Admission: 08/11/24
Date of Discharge: 08/12/24
-
Pending Results: No
Hospital Course
Discharging Physician : Silvio Gallagher
Disposition : Home
Primary care physician : Dr. Marsha Willoughby
Principal Discharge diagnosis : Unprovoked pulmonary embolism
Chronic Discharge diagnosis : Provoked DVT and pulmonary embolism, IBS, anxiety, GERD, lumbar stenosis, migraines
Hospital Course : 74-year-old female with a past medical history of 2 provoked PEs and 1 provoked DVT presents to the emergency department with 1 day of shortness of breath and chest pain. In the emergency department patient had a CT PE study which
demonstrated moderate bilateral pulmonary thromboembolism, extending from the lobar into subsegmental/segmental branches of the bilateral lungs. As well as an upper left lobe pulmonary infarct. Patient has a history of these, however she is not on
lifelong anticoagulation. Patient was started on IV heparin and admitted to telemetry. Admissions Dean/pulmonology were consulted as were hematology. Patient reported being up-to-date on age-appropriate cancer screenings. During her stay patient
also received an ultrasound of the lower extremities which demonstrated findings consistent with chronic right lower extremity DVT, left lower extremity had no signs of DVT. She also received a 2D echo which demonstrated normal LV EF with normal RV
size and function. Patient continued on heparin drip and was eventually transition to oral Eliquis. Hematology was consulted, patient was known to the service, they agreed she was safe to be discharged with oral anticoagulation and had follow-up
arranged for 8 to 10 weeks postdischarge. Patient was written a prescription for Eliquis including a loading dose of 7 days of 10 mg twice daily, as well as 5 mg twice daily to be used indefinitely until she follows up with hematology. Patient was
sent home with prescription of Eliquis and will follow-up with her primary care physician within 1 week of discharge, for any age-appropriate cancer screenings, hematology in 8 to 10 weeks for discussion of lifelong anticoagulation and potential
hypercoagulable workup and pulmonology. Patient was discharged home with oral Eliquis and hematology, pulmonology and primary care follow-up.
Important imaging findings :
08/11/[address] PE study, impression:
1. Moderate bilateral pulmonary thromboembolus extending from the lobar into the segmental/subsegmental branches of the bilateral lungs.
2. Left upper lobe pulmonary infarct.
08/11/2024 peripheral vascular ultrasound, impression:
Findings involving the right femoral and popliteal veins, which are highly suggestive of chronic changes of deep venous thrombosis.
No evidence for deep venous thrombosis of the left lower extremity.
Procedure findings :
No procedures
Discharge Plan
-
Patient Disposition: Home (Routine Discharge)
Discharge Diagnosis/Procedures: unprovoked PE
Condition: Good
Diet: No restrictions
Activity: As tolerated
Driving Restrictions: As prior to admission
Bathing Restrictions: None
Activity Restrictions/Additional Instructions:
Please follow up with your PCP within one week of discharge
Please follow up with hematology in one week of discharge
Referrals:
Cristina Keys, [Active] - in one week
Marsha Willoughby MD [Family Provider] - in less than 1 week
Additional Discharge Medication Instructions: take Eliquis 10 mg twice a day by mouth for 7 days. Then transition to 5 mg twice a day by mouth to take indefinitely or until told otherwise by hematology
Prescriptions:
New
Eliquis 5 mg tablet
10 mg PO BID Qty: 13 0RF
Rx Instructions:
10 mg for 7 days.
apixaban 5 mg tablet
5 mg PO BID 30 Days Qty: 60 3RF
Rx Instructions:
Start after completing 7 days of 10 mg Eliquis
Continued
multivitamin Tablet
1 tab PO DAILY
esomeprazole magnesium [Nexium] 40 mg Capsule,Delayed Release(Dr/Ec)
40 mg PO HS
calcium polycarbophil [FiberCon] 625 mg Tablet
1,250 mg PO DAILY
bupropion HCl 300 MG tablet extended release 24 hr
300 mg PO DAILY
calcium carbonate-vitamin D3 [Oyster Shell + D3] 250 mg-3.125 mcg (125 unit) Tablet
1 tab PO DAILY
biotin 2,500 mcg Capsule
5,000 mcg PO DAILY Qty: 0
Aimovig Autoinjector 140 mg/mL Auto-Injector
140 mg SC QMONTH
celecoxib [Celebrex] 200 mg Capsule
200 mg PO DAILY
potassium gluconate 550 mg Tablet
1,100 meq PO PRN PRN (Reason: supp)
lysine 1,000 mg Tablet
1,000 mg PO SUTUTHSA
Patient Comments:
4 tabs per week
zolmitriptan 5 mg [place],Non-Aerosol
1 spray INTRANASAL Q2H PRN (Reason: headache)
hydrocodone-acetaminophen 5-325 mg tablet
1 tab PO BIDPRN PRN (Reason: arthritis pain )
Rx Instructions:
08/11/24: filled #60 tablets/30 day supply on 07/20/[address] [facility]
Acidophilus Tablet,Chewable
1 tab PO SUTUTHSA
Discharge Orders:
Discharge Patient (As Directed); Ordered 08/12/24
Ordered By: Miguel Gallagher
Discharge Date and Time
Discharge Date/Time: 08/12/24 11:32
Print Language: NEPALESE
== END 2024-08-12 11:32 | disposition home or self-care (01) | DRG 176 ==
LOC: 3 WEST ACU 12:43
PROVIDERS: ADMITTING PHYSICIAN Hospitalist; CONSULT PHYSICIAN Internal Medicine Critical Care Medicine; EMERGENCY PHYSICIAN Emergency Medicine; FAMILY PHYSICIAN Family Medicine; OTHER PHYSICIAN Internal Medicine Hematology & Oncology
DX: I26.99 Other pulmonary embolism without acute cor pulmonale (principal); I82.501 Chronic embolism and thrombosis of unspecified deep veins of right lower extremity; R07.89 Other chest pain; M54.6 Pain in thoracic spine; D64.9 Anemia, unspecified; D72.829 Elevated white blood cell count, unspecified; M19.90 Unspecified osteoarthritis, unspecified site; K58.9 Irritable bowel syndrome, unspecified; F32.A Depression, unspecified; F41.9 Anxiety disorder, unspecified; G43.909 Migraine, unspecified, not intractable, without status migrainosus; K21.9 Gastro-esophageal reflux disease without esophagitis; E04.2 Nontoxic multinodular goiter; L40.9 Psoriasis, unspecified; M48.061 Spinal stenosis, lumbar region without neurogenic claudication; Z96.643 Presence of artificial hip joint, bilateral; Z86.718 Personal history of other venous thrombosis and embolism; Z86.711 Personal history of pulmonary embolism; Z79.01 Long term (current) use of anticoagulants; Z87.891 Personal history of nicotine dependence; Z88.8 Allergy status to other drugs, medicaments and biological substances; Z91.013 Allergy to seafood; Z87.01 Personal history of pneumonia (recurrent); Z80.6 Family history of leukemia; Z82.5 Family history of asthma and other chronic lower respiratory diseases; Z80.0 Family history of malignant neoplasm of digestive organs; Z83.3 Family history of diabetes mellitus
CPT/HCPCS: 71275; 80053; 83880; 84484; 85025; 85027; 85730; 93005; 93306; 93970; 96365; 96366; 96375; 99285; Q9967

== ENCOUNTER → 2024-08-15 11:25 | Outpatient (REF) | payer OTHER, SELFPAY | LOC: HWWDC 11:25 | PROVIDERS: ATTENDING PHYSICIAN Family Medicine | DX: Z12.31 Encounter for screening mammogram for malignant neoplasm of breast (principal) | CPT/HCPCS: 77063; 77067 ==

== ENCOUNTER 2024-11-14 16:27 | Emergency (ER) | payer OTHER, SELFPAY ==
[2024-11-14 16:34] VITALS: BP 156/86
--- NOTE | 2024-11-14 17:17 | ED.GENMED ---
History of Present Illness
<Sammy Sanders PA-C - Last Filed: 11/14/24 17:22>
General
Chief Complaint: DVT/Possible Blood Clot
Source: patient
Time Seen by Provider: 11/14/24 16:57
History of Present Illness
History of Present Illness:
74-year-old female with past medical history of factor V, previous DVT/PE, maintained on Eliquis which she reports good compliance with presenting to the emergency department for evaluation of right lower extremity pain posterior to the right knee
for the last 2 days, continued today which had patient concern for redeveloping a DVT. Patient denies any known injury, chest pain, shortness of breath, weakness or numbness/remedy or difficulty with range of motion. Patient reports she is readily
compliant with her Eliquis. Denies any other concerns.
Past History
<Sammy Sanders PA-C - Last Filed: 11/14/24 17:22>
Past History
ED Past Medical History: GERD, Psychiatric (depression) and Other (DVT, pulmonary embolism, lumbar stenosis, migraines, anemia)
ED Past Surgical History: Appendectomy, Orthopedic and Other
Social History
Tobacco: Non-smoker
Alcohol: None
Drug: None
Personal:
Living: alone
Employment: Employed
Review of Systems
<Sammy Sanders PA-C - Last Filed: 11/14/24 17:22>
Review of Systems
All Other Systems: ROS reviewed and negative except as documented in HPI and ROS
Phy Exam
<Sammy Sanders PA-C - Last Filed: 11/14/24 17:22>
Physical Exam
Physical Exam:
GENERAL: Alert , in no apparent distress
EYE: conjunctiva clear
Head: Normocephalic atraumatic
NECK: Supple,
ENT: mmm.
LUNGS: no acute respiratory distress
NEUROLOGICAL: Alert and oriented
SKIN: Warm and dry, skin intact.
MUSCULOSKELETAL: Right lower extremity: Warm and well-perfused, no obvious areas of edema, no focal areas of tenderness. There is no erythema, ecchymosis or abrasions. There are bilateral varicose veins noted. Left lower extremity has a small
area of patchy psoriasis.
PSYCH: Normal and appropriate interaction.
Scores
<Sammy Sanders PA-C - Last Filed: 11/14/24 17:22>
Heart Failure Risk
Heart Failure Risk Score: Not Applicable
Heart Score for Chest Pain Patients
STEMI patient?: Not applicable
Withdrawal Assessment of Alcohol
Withdrawal Assessment Completed?: Not applicable
Course
<Sammy Sanders PA-C - Last Filed: 11/14/24 17:22>
Orders/Labs/Results
Orders:
Orders
11/14/24 16:48
US Periph Venous LOWER Ext RT Urgent
Comment:
Reason For Exam: pain, hx DVT
11/14/24 19:55
Jose Wrap Right-Treatment ONCE
Vital Signs
Initial and Last Documented VS:
Initial Vital Signs
Temp Pulse Resp BP Pulse Ox
98.6 F 86 18 156/86 98
11/14/24 16:34 11/14/24 16:34 11/14/24 16:34 11/14/24 16:34 11/14/24 16:34
Last Documented Vital Signs
Temp Pulse Resp BP Pulse Ox
98.6 F 77 18 139/71 98
11/14/24 16:34 11/14/24 19:20 11/14/24 16:34 11/14/24 19:20 11/14/24 19:20
<Leticia Gross PA-C - Last Filed: 11/14/24 23:54>
Orders/Labs/Results
Orders:
Orders
11/14/24 16:48
US Periph Venous LOWER Ext RT Urgent
Comment:
Reason For Exam: pain, hx DVT
11/14/24 19:55
Jose Wrap Right-Treatment ONCE
Vital Signs
Initial and Last Documented VS:
Initial Vital Signs
Temp Pulse Resp BP Pulse Ox
98.6 F 86 18 156/86 98
11/14/24 16:34 11/14/24 16:34 11/14/24 16:34 11/14/24 16:34 11/14/24 16:34
Last Documented Vital Signs
Temp Pulse Resp BP Pulse Ox
98.6 F 77 18 139/71 98
11/14/24 16:34 11/14/24 19:20 11/14/24 16:34 11/14/24 19:20 11/14/24 19:20
<Sammy Sanders PA-C - Last Filed: 11/14/24 17:22>
MDM/Problems Addressed
Differential Diagnosis Includes:
DVT considered however given patient is compliant with Eliquis this makes this diagnosis much less likely, muscle strain, peripheral vascular disease/varicose veins, PAD although patient has intact and equal pulses bilaterally
MDM/Problems Addressed:
74-year-old female presenting the ER for pain that started posteriorly to the right lower extremity 2 days ago, history of DVT and was concern for reoccurrence. Ultrasound ordered. Patient otherwise hemodynamically stable
Chronic conditions affecting care: Other (Previous DVT, factor V deficiency)
<Sammy Sanders PA-C - Last Filed: 11/14/24 17:22>
*Pulse Oximetry
Patient hypoxic: no
<Leticia Gross PA-C - Last Filed: 11/14/24 23:54>
*Critical Care Note
Total Time (30-74mins, 75-104mins- exclusive of procedures): Not Applicable
<Leticia Gross PA-C - Last Filed: 11/14/24 23:54>
Update Note
Update Note:
Update: Received patient in signout. Ultrasound report reviewed which does show a right-sided Young's cyst along with a chronic, nonocclusive thrombus within right femoral vein similar in appearance from prior studies. Patient is currently
anticoagulated on Eliquis and is compliant with his medication. Ultimately�feel symptoms acute symptoms today related to Young's cyst.. No evidence of infectious process. Will place JOSE wrap and advise rest, ice, and elevation. Patient having no
ambulatory dysfunction. Patient will follow-up with her scientist electronics regarding chronic DVT. Discussed importance of compliance with Eliquis. Very close return precaution discussed with patient. Patient stable for discharge home. Patient
provided copy of ultrasound report to review with her scientist electronics.
ED Attending Note
<Sammy Sanders PA-C - Last Filed: 11/14/24 17:22>
-
Portions of this chart may have been created with voice recognition software.� Occasional wrong word or��sound alike� substitutions may have occurred due to the inherent limitations of voice recognition software.
Discharge Plan
Departure
Patient Disposition: Home (Routine Discharge)
Date of Disposition: 11/14/24
Time of Disposition: 19:56
Patient with high blood pressure during this ER visit?: Yes
Condition: Good
Covid-19: Not Applicable
Discharge Problem:
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
Instructions: Deep Vein Thrombosis (Blood Clots in the Legs) (DC), Young's Cyst (DC), BLOOD PRESSURE
Prescriptions:
No Action
multivitamin Tablet
1 tab PO DAILY
esomeprazole magnesium [Nexium] 40 mg Capsule,Delayed Release(Dr/Ec)
40 mg PO HS
calcium polycarbophil [FiberCon] 625 mg Tablet
1,250 mg PO DAILY
bupropion HCl 300 MG tablet extended release 24 hr
300 mg PO DAILY
calcium carbonate-vitamin D3 [Oyster Shell + D3] 250 mg-3.125 mcg (125 unit) Tablet
1 tab PO DAILY
biotin 2,500 mcg Capsule
5,000 mcg PO DAILY Qty: 0
Aimovig Autoinjector 140 mg/mL Auto-Injector
140 mg SC QMONTH
celecoxib [Celebrex] 200 mg Capsule
200 mg PO DAILY
potassium gluconate 550 mg Tablet
1,100 meq PO PRN PRN (Reason: supp)
lysine 1,000 mg Tablet
1,000 mg PO SUTUTHSA
Patient Comments:
4 tabs per week
zolmitriptan 5 mg [place],Non-Aerosol
1 spray INTRANASAL Q2H PRN (Reason: headache)
hydrocodone-acetaminophen 5-325 mg tablet
1 tab PO BIDPRN PRN (Reason: arthritis pain )
Rx Instructions:
08/11/24: filled #60 tablets/30 day supply on 07/20/24 at [facility]
Acidophilus Tablet,Chewable
1 tab PO SUTUTHSA
Eliquis 5 mg tablet
10 mg PO BID Qty: 13 0RF
Rx Instructions:
10 mg for 7 days.
apixaban 5 mg tablet
5 mg PO BID 30 Days Qty: 60 3RF
Rx Instructions:
Start after completing 7 days of 10 mg Eliquis
Referrals:
Cristina Keys DO [Active] - Call in 1-3 days for appt
Marsha Willoughby MD [Family Provider] -
Stand Alone Forms: Return to Work
Activity Restrictions/Additional Instructions:
Return to the emergency department with any fevers, chest pain, shortness of breath, significant redness, pain, or swelling of right lower extremity, worsening current symptoms, or any other concerns
-As discussed�your ultrasound did show a Young's cyst and right lower leg. You should keep leg elevated, ice and wear Jose wrap. Take Tylenol as needed to for pain. Monitor for any significant redness, swelling, or other signs of infection
-Your ultrasound did also show a chronic blood clot in your right lower leg which appears unchanged. You should continue to take your Eliquis as prescribed. Follow-up with your scientist electronics for further evaluation/management
Monitor your symptoms closely return to the emergency department with any acute worsening/new symptoms or any other concerns
Interventions
Interventions:
*Risk Screen - Suicide Last Done: 11/14/24 16:35
*General Assessment Last Done: 11/14/24 16:35
*Neglect/Abuse Screening Last Done: 11/14/24 16:35
ED- Fall Risk Assessment Last Done: 11/14/24 17:14
*ED COVID-19 Vaccine History Last Done: 11/14/24 17:14
*Nursing Disposition Last Done: 11/14/24 20:06
ED- Cardiac Assessment Last Done: 11/14/24 17:14
ED- Pulmonary Assessment Last Done: 11/14/24 17:14
ED-Peripheral Vascular Assessment Last Done: 11/14/24 17:14
ED-Skin Assessment Last Done: 11/14/24 17:14
Discharge Date and Time
Discharge Date/Time: 11/14/24 20:07
Print Language: AMHARIC
[2024-11-14 19:20] VITALS: BP 139/71
== END 2024-11-14 20:07 | disposition home or self-care (01) ==
LOC: EMR 16:27
PROVIDERS: EMERGENCY PHYSICIAN Emergency Medicine; FAMILY PHYSICIAN Family Medicine
DX: I82.511 Chronic embolism and thrombosis of right femoral vein (principal); M71.21 Synovial cyst of popliteal space [Baker], right knee; D68.2 Hereditary deficiency of other clotting factors; K21.9 Gastro-esophageal reflux disease without esophagitis; Z79.01 Long term (current) use of anticoagulants; Z90.49 Acquired absence of other specified parts of digestive tract
CPT/HCPCS: 99284; 93971

== ENCOUNTER 2025-02-10 15:13 | Emergency (ER) | payer OTHER, SELFPAY ==
[2025-02-10] VITALS (7 sets, daily range): BP systolic 128–154; BP diastolic 65–112
[2025-02-10] MEDS: ZOFRAN 4 MG IV (15:23)
--- NOTE | 2025-02-10 15:24 | ED.GENMED ---
History of Present Illness
General
Chief Complaint: Abdominal Pain
Source: patient
Exam Limitations: none
Time Seen by Provider: 02/10/25 15:19
Nursing documentation reviewed up to this point in time: agreed with
History of Present Illness
History of Present Illness:
74-year-old female presents Emergency Department via EMS due to nausea vomiting and diarrhea. She denies any chest pain or abdominal pain. She just feels very nauseous and is dry heaving. She was given 4 mg of Zofran and 250 mL normal saline by
EMS. EMS did a twelve-lead, which they state is unremarkable.
Past History
Past History
ED Past Medical History: GERD, Psychiatric (depression) and Other (DVT, pulmonary embolism, lumbar stenosis, migraines, anemia)
ED Past Surgical History: Appendectomy, Orthopedic and Other
Social History
Tobacco: Non-smoker
Alcohol: None
Drug: None
Personal:
Living: alone
Employment: Employed
Review of Systems
Review of Systems
Allergies reviewed?: Yes
All Other Systems: Not applicable
Constitutional: Reports no symptoms
EENT: Reports no symptoms
Respiratory: Reports no symptoms; Denies trouble breathing
Cardiac: Reports no symptoms; Denies chest pain
ABD/GI: Reports vomiting and diarrhea
: Reports no symptoms
Musculoskeletal: Reports no symptoms
Skin: Reports no symptoms
Neurological: Reports no symptoms
Endocrine: Reports no symptoms
Hematologic/Lymphatic: Reports no symptoms
Psychiatric: Reports no symptoms
Phy Exam
Physical Exam
Physical Exam:
Physical Exam
General: Appears uncomfortable, dry heaving
Neck: supple. no meningeal signs. normal posterior pharynx
Heart: s1/s2 regular rate and rhythm, no murmur. equal radial
pulses.
HEENT: Pupils equal round reactive to light, EOMI
Lungs: no acute respiratory distress. clear bilaterally
Abdomen: normal bowel sounds. not tender. no CVAT
Neuro: alert and oriented. no focal neurological deficits cranial nerves II through XII intact
Skin: no rash
Psychiatric: well kept. interactive and cooperative
Extremities: no edema. no calf tenderness. negative homans. good distal pulses
Course
Orders/Labs/Results
Orders:
Orders
02/10/25 15:18
Ondansetron Injectable [Zofran] 4 mg .ROUTE .STK-MED ONE
02/10/25 15:19
IV Insert/Care/Rem.- Treatment PRN
Ondansetron Injectable [Zofran] 4 mg IV NOW STA
02/10/25 15:20
Electrocardiogram (*1) Stat
Reason for Study: Abdominal Pain
EKG- Treatment ONCE
02/10/25 15:27
Complete Blood Count/With Diff Urgent
Comprehensive Metabolic Panel Urgent
Lipase Urgent
02/10/25 16:53
CT Abd/pelvis W Iv Cont Urgent
Comment:
Reason For Exam: vomiting, abdominal pain
02/10/25 17:01
Lactic Acid Urgent
02/10/25 17:12
Urinalysis Reflex To Culture Urgent
Date Specimen was Collected: 02/10/25
Time Specimen was Collected: 16:50
Urine Microscopic Reflex Cult Urgent
02/10/25 17:41
Promethazine [Phenergan] 25 mg 0.9% Sodium Chloride 50 ml [Nss] 50 ml IV NOW
02/10/25 18:51
Pantoprazole [Protonix IV] 40 mg IV NOW STA
Abnormal Lab Results
02/10/25 02/10/25
15:27 17:12
RBC 3.86 L 10^6/uL
(4.20-5.40)
MCH 33.7 H pg
(27.0-31.0)
Abs Immat Gran (auto) 0.1 H 10^3/uL
(0-0.05)
Absolute Neuts (auto) 7.8 H 10^3/uL
(1.4-6.5)
Neutrophils % 76.7 H %
(42.2-75.2)
Lymphocytes % 17.4 L %
(20.5-51.1)
Chloride 109 H mmol/L
(98-107)
Carbon Dioxide 21 L mmol/L
(22-30)
Glucose 154 H mg/dl
(70-99)
Alkaline Phosphatase 128 H U/L
(38-126)
Urine Ketones 3+ A
(Negative)
Ur Occult Blood Reflex 4+ A
(Negative)
Urine RBC 16-20 A /HPF
(0-2)
02/10/25 15:27
02/10/25 15:27
Vital Signs
Initial and Last Documented VS:
Initial Vital Signs
Pulse Resp
75 18
02/10/25 15:15 02/10/25 15:15
Last Documented Vital Signs
Temp Pulse Resp BP Pulse Ox
97.3 F 88 19 154/78 97
02/10/25 15:32 02/10/25 19:00 02/10/25 19:00 02/10/25 19:00 02/10/25 17:39
MDM/Problems Addressed
Differential Diagnosis Includes:
Bowel obstruction, gastritis
MDM/Problems Addressed:
74-year-old female with nausea vomiting, likely due to gastritis/esophagitis. Improved after IV Phenergan. IV Protonix given as well. Discharged prescription for Phenergan. Follow-up with primary care. Do not suspect ACS. No bowel obstruction
seen.
Chronic conditions affecting care: Previous abdomnial surgery and Other (Pulmonary embolism)
*Radiology
Radiology exam reviewed: radiology read reviewed (ct a/p gastritis)
*Pulse Oximetry
Patient hypoxic: no
*EKG
Interpreted by ED Provider?: Yes
EKG Intrepretation Date: 02/10/25
EKG Intrepretation Time: 15:27
Interpretation: abnormal
Comparison EKG: changes noted
Heart Rate: 70
Rate: normal
Rhythm: sinus
[place]: normal axis
Interval: normal interval
QRS Pattern: normal QRS
Ischemia: non-specific ST changes
*[employer]ellite [employer] Operator Interpretation
Rate: normal
Interpretation: normal
Heart Rate: 72
Rhythm: sinus
*Critical Care Note
Total Time (30-74mins, 75-104mins- exclusive of procedures): Not Applicable
Patient Management
Social determinants of health affecting care: Living situation and Strong social support
Escalation/DeEscalation of care consider admission/obs:
admit not indicated
ED Attending Note
-
Portions of this chart may have been created with voice recognition software.� Occasional wrong word or��sound alike� substitutions may have occurred due to the inherent limitations of voice recognition software.
Discharge Plan
Departure
Patient Disposition: Home (Routine Discharge)
Date of Disposition: 02/10/25
Time of Disposition: 18:58
Patient with high blood pressure during this ER visit?: Yes
Condition: Good
Discharge Problem:
Gastritis
Instructions: Gastritis - ED discharge instructions, Abdominal Pain, BLOOD PRESSURE
Prescriptions:
New
pantoprazole [Protonix] 40 mg tablet,delayed release (DR/EC)
40 mg PO DAILY Qty: 14 0RF
promethazine 25 mg tablet
25 mg PO Q6H PRN (Reason: nausea and vomiting) Qty: 10 0RF
No Action
multivitamin Tablet
1 tab PO DAILY
esomeprazole magnesium [Nexium] 40 mg Capsule,Delayed Release(Dr/Ec)
40 mg PO HS
calcium polycarbophil [FiberCon] 625 mg Tablet
1,250 mg PO DAILY
bupropion HCl 300 MG tablet extended release 24 hr
300 mg PO DAILY
calcium carbonate-vitamin D3 [Oyster Shell + D3] 250 mg-3.125 mcg (125 unit) Tablet
1 tab PO DAILY
biotin 2,500 mcg Capsule
5,000 mcg PO DAILY Qty: 0
Aimovig Autoinjector 140 mg/mL Auto-Injector
140 mg SC QMONTH
celecoxib [Celebrex] 200 mg Capsule
200 mg PO DAILY
potassium gluconate 550 mg Tablet
1,100 meq PO PRN PRN (Reason: supp)
lysine 1,000 mg Tablet
1,000 mg PO SUTUTHSA
Patient Comments:
4 tabs per week
zolmitriptan 5 mg [place],Non-Aerosol
1 spray INTRANASAL Q2H PRN (Reason: headache)
hydrocodone-acetaminophen 5-325 mg tablet
1 tab PO BIDPRN PRN (Reason: arthritis pain )
Rx Instructions:
08/11/24: filled #60 tablets/30 day supply on 07/20/24 at [facility]
Acidophilus Tablet,Chewable
1 tab PO SUTUTHSA
Eliquis 5 mg tablet
10 mg PO BID Qty: 13 0RF
Rx Instructions:
10 mg for 7 days.
apixaban 5 mg tablet
5 mg PO BID 30 Days Qty: 60 3RF
Rx Instructions:
Start after completing 7 days of 10 mg Eliquis
Referrals:
Marsha Willoughby MD [Family Provider] -
Interventions
Interventions:
*Risk Screen - Suicide Last Done: 02/10/25 15:32
*General Assessment Last Done: 02/10/25 15:32
*Neglect/Abuse Screening Last Done: 02/10/25 15:32
*ED- Fall Risk Assessment Last Done: 02/10/25 18:58
*ED COVID-19 Vaccine History Last Done: 02/10/25 15:32
*Nursing Disposition Last Done: 02/10/25 19:34
VJ-Ersqit-Zcpjxixooz Assessment Last Done: 02/10/25 15:32
Discharge Date and Time
Print Language: ROMANIAN
[2025-02-10 15:43] LABS: % Basophils 0.6 % (0-2); % Eosinophils 0.1 % (0-6); % Immature Granulocytes 0.5 % (0-0.5); % Lymphocytes 17.4 % (20.5-51.1); % Monocytes 4.7 % (1.7-9.3); % Neutrophils 76.7 % (42.2-75.2); Absolute Basophils 0.1 10^3/uL (0-0.2); Absolute Immature Granulocytes 0.1 10^3/uL (0-0.05); Absolute Lymphocytes 1.8 10^3/uL (1.2-3.4); Absolute Monocytes 0.5 10^3/uL (0.1-0.6); Absolute Neutrophils 7.8 10^3/uL (1.4-6.5); Mean Corp Hgb Conc. 35.1 g/dL (33.0-37.0); Mean Corpuscular Hgb 33.7 pg (27.0-31.0); Mean Corpuscular Volume 95.9 fL (81.0-99.0); Mean Platelet Volume 10.2 fL (7.4-10.4); Nucleated Red Blood Cells % 0 %; Platelet Count 269 10^3/uL (130-400); Red Blood Cell Count 3.86 10^6/uL (4.20-5.40); Red Cell Dist. Width 13.2 % (11.5-14.5); White Blood Cell Count 10.2 10^3/uL (4.8-10.8)
[2025-02-10 16:14] LABS: ALT (SGPT) 20 U/L (0-35); AST (SGOT) 25 U/L (14-36); Albumin 3.9 g/dl (3.5-5.0); Alkaline Phosphatase 128 U/L (38-126); Blood Urea Nitrogen 16 mg/dl (7-17); Calcium 9.1 mg/dl (8.4-10.2); Carbon Dioxide 21 mmol/L (22-30); Chloride 109 mmol/L (98-107); Estimated Creatinine Clearance 69 ml/min; Glucose 154 mg/dl (70-99); Potassium 3.9 mmol/L (3.5-5.1); Sodium 140 mmol/L (135-145); Total Bilirubin 0.6 mg/dl (0.2-1.3); Total Protein 6.4 g/dl (6.3-8.2); eGFR > 60.00
[2025-02-10 16:15] LABS: Lipase 39 U/L (23-300)
[2025-02-10 17:22] LABS: Lactic Acid 1.4 mmol/L (0.7-2.0)
[2025-02-10 17:27] LABS: Urine Albumin Negative (Neg - Trace); Urine Bilirubin Negative (Negative); Urine Character Clear (Clear); Urine Color Yellow; Urine Glucose Negative (Negative); Urine Ketone 3+ (Negative); Urine Leukocyte Negative (Negative); Urine Nitrite Negative (Negative); Urine Occult Blood 4+ (Negative); Urine Urobilinogen Negative (Neg - 1+)
[2025-02-10 17:47] LABS: Urine Red Blood Cell 16-20 /HPF (0-2)
[2025-02-10] MEDS: PHENERGAN 51 MG IV (18:23)
[2025-02-10] MEDS: PROTONIX IV 40 MG IV (19:31)
== END 2025-02-10 19:35 | disposition home or self-care (01) ==
LOC: EMR 15:13
PROVIDERS: EMERGENCY PHYSICIAN Emergency Medicine; FAMILY PHYSICIAN Family Medicine
DX: K29.70 Gastritis, unspecified, without bleeding (principal); K21.9 Gastro-esophageal reflux disease without esophagitis; F32.A Depression, unspecified; M48.061 Spinal stenosis, lumbar region without neurogenic claudication; D64.9 Anemia, unspecified; Z86.711 Personal history of pulmonary embolism; Z86.718 Personal history of other venous thrombosis and embolism; Z90.49 Acquired absence of other specified parts of digestive tract
CPT/HCPCS: 99284; 96374; 96375; 74177; 80053; 81003; 81015; 83605; 83690; 85025; 93005; Q9967

== ENCOUNTER 2025-03-14 17:01 | Emergency (ER) | payer OTHER, SELFPAY ==
[2025-03-14 17:14] VITALS: BP 138/86
--- NOTE | 2025-03-14 19:19 | ED.MUSCINJ ---
HPI-Injury
General
Chief Complaint: Musculo-Skeletal Complaint
Source: patient
Exam Limitations: none
Time Seen by Provider: 03/14/25 17:44
Nursing documentation reviewed up to this point in time: agreed with
History of Present Illness-Injury
Is this injury a work related problem?: No
Is pt an associate of [facility]?: No
Initial Injury comments:
Patient to ED with complaint of right posterior knee pain. 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 SHe has a known femoral thrombus x 6 mos. Seen again on US 3 mos ago when she was diagnosed with bakers cyst.
Curently on xarelto. Reports complaince with medication. No history of trauma. Denies fever/chills.
Past History
Past History
ED Past Medical History: GERD, Psychiatric (depression) and Other (DVT, pulmonary embolism, lumbar stenosis, migraines, anemia)
ED Past Surgical History: Appendectomy, Orthopedic and Other
Social History
Tobacco: Non-smoker
Alcohol: None
Drug: None
Personal:
Living: alone
Employment: Employed
Review of Systems
Review of Systems
Allergies reviewed?: Yes
All Other Systems: ROS reviewed and negative except as documented in HPI and ROS
Constitutional: Reports no symptoms
EENT: Reports no symptoms
Respiratory: Reports no symptoms
Cardiac: Reports no symptoms
ABD/GI: Reports no symptoms
: Reports no symptoms
Musculoskeletal: Reports joint pain (pain to rght posterior knee)
Skin: Reports no symptoms
Neurological: Reports no symptoms
Psychiatric: Reports no symptoms
Musculoskeletal Injury Exam
Musculoskeletal Injury Exam
Right Posterior Knee:
Pain with Movement?: Moderate
Tender to palpation?: Moderate
Soft tissue swelling?: Mild
External deformity and angulation?: None
Joint effusion?: None
Contusion?: None
Hematoma-local bleeding into tissue?: None
Strain- Sprain- Tear (Connective tissue injury)?: None
Crepitus with movement?: No
Joint instability?: No
Malalignment/deformity?: No
Range of motion: Full
Distal skin color and temperature: normal-warm & good color
Capillary Refill: normal
Normal distal neurovascular exam?: Yes
Phy Exam
General Physical Exam
General Presentation: well appearing and no apparent distress
General age: appears stated age
General Skin: warm and dry
General Habitus: normal
General Mental: alert
Musculoskeletal Exam
Musculoskeletal Exam: full ROM and neuro vasc intact
Skin Exam
Skin Exam: normal color, warm/dry and no rash
Psychiatric Exam
Psychiatric Exam: normal mood/affect
Injury Course
Orders/Labs/Results
Orders:
Orders
03/14/25 17:16
US Periph Venous LOWER Ext RT Urgent
Comment:
Reason For Exam: swelling
*Radiology
Radiology exam reviewed: radiology read reviewed
*Pulse Oximetry
Patient hypoxic: no
*Critical Care Note
Total Time (30-74mins, 75-104mins- exclusive of procedures): Not Applicable
Update Note
Update Note:
Patent to ED [facility] complaint of posterior knee pain. 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 Has been taking eliquis as prescribed. No cp/pressure, SOB, cough. Nonocclusive thrombus in right radius again seen
Kalee consulted, repprts alejandro tthis is evidence of scarring. Ok to contiue eliquis. SHe has a follow up appt tomorrow with Dr. Keys. No acute findings on exam tonight. Will discharge home. SHe was given instructions on s/s to return to eD
and she is agreeable to plan.
ED Attending Note
-
Portions of this chart may have been created with voice recognition software.� Occasional wrong word or��sound alike� substitutions may have occurred due to the inherent limitations of voice recognition software.
Discharge Plan
Departure
Patient Disposition: Home (Routine Discharge)
Date of Disposition: 03/14/25
Time of Disposition: 19:18
Patient with high blood pressure during this ER visit?: No
Condition: Good
Covid-19: Not Applicable
Discharge Problem:
Posterior knee pain
Instructions: Knee Pain (DC), Using Cold for Pain
Prescriptions:
No Action
multivitamin Tablet
1 tab PO DAILY
esomeprazole magnesium [Nexium] 40 mg Capsule,Delayed Release(Dr/Ec)
40 mg PO HS
calcium polycarbophil [FiberCon] 625 mg Tablet
1,250 mg PO DAILY
bupropion HCl 300 MG tablet extended release 24 hr
300 mg PO DAILY
calcium carbonate-vitamin D3 [Oyster Shell + D3] 250 mg-3.125 mcg (125 unit) Tablet
1 tab PO DAILY
biotin 2,500 mcg Capsule
5,000 mcg PO DAILY Qty: 0
Aimovig Autoinjector 140 mg/mL Auto-Injector
140 mg SC QMONTH
celecoxib [Celebrex] 200 mg Capsule
200 mg PO DAILY
potassium gluconate 550 mg Tablet
1,100 meq PO PRN PRN (Reason: supp)
lysine 1,000 mg Tablet
1,000 mg PO SUTUTHSA
Patient Comments:
4 tabs per week
zolmitriptan 5 mg [place],Non-Aerosol
1 spray INTRANASAL Q2H PRN (Reason: headache)
hydrocodone-acetaminophen 5-325 mg tablet
1 tab PO BIDPRN PRN (Reason: arthritis pain )
Rx Instructions:
08/11/24: filled #60 tablets/30 day supply on 07/20/24 at [id number]
Acidophilus Tablet,Chewable
1 tab PO SUTUTHSA
Eliquis 5 mg tablet
10 mg PO BID Qty: 13 0RF
Rx Instructions:
10 mg for 7 days.
apixaban 5 mg tablet
5 mg PO BID 30 Days Qty: 60 3RF
Rx Instructions:
Start after completing 7 days of 10 mg Eliquis
pantoprazole [Protonix] 40 mg tablet,delayed release (DR/EC)
40 mg PO DAILY Qty: 14 0RF
promethazine 25 mg tablet
25 mg PO Q6H PRN (Reason: nausea and vomiting) Qty: 10 0RF
Referrals:
Marsha Willoughby MD [Family Provider, Family Practice] - Tomorrow
Interventions
Interventions:
*Risk Screen - Suicide Last Done: 03/14/25 17:16
*General Assessment Last Done: 03/14/25 17:16
*Neglect/Abuse Screening Last Done: 03/14/25 17:16
*ED COVID-19 Vaccine History Last Done: 03/14/25 17:16
Discharge Date and Time
Print Language: UKRAINIAN
[2025-03-14 20:26] VITALS: BP 133/68
== END 2025-03-14 20:27 | disposition home or self-care (01) ==
LOC: EMR 17:01
PROVIDERS: EMERGENCY PHYSICIAN Emergency Medicine; FAMILY PHYSICIAN Family Medicine
DX: M25.561 Pain in right knee (principal); R22.41 Localized swelling, mass and lump, right lower limb; K21.9 Gastro-esophageal reflux disease without esophagitis; F32.A Depression, unspecified; M48.061 Spinal stenosis, lumbar region without neurogenic claudication; D64.9 Anemia, unspecified; Z79.01 Long term (current) use of anticoagulants; Z86.711 Personal history of pulmonary embolism; Z86.718 Personal history of other venous thrombosis and embolism; Z90.49 Acquired absence of other specified parts of digestive tract
CPT/HCPCS: 99284; 93971

== ENCOUNTER → 2025-08-16 06:45 | Outpatient (REF) | payer OTHER, SELFPAY | LOC: HWWDC 06:45 | PROVIDERS: ATTENDING PHYSICIAN Family Medicine | DX: Z12.31 Encounter for screening mammogram for malignant neoplasm of breast (principal) | CPT/HCPCS: 77063; 77067 ==

== ENCOUNTER 2025-08-18 06:20 | Day surgery (SDC) | payer OTHER, SELFPAY | END 2025-08-18 11:37 | disposition home or self-care (01) | LOC: GI 06:20 | PROVIDERS: ATTENDING PHYSICIAN Specialist | DX: Z12.11 Encounter for screening for malignant neoplasm of colon (principal); Z80.0 Family history of malignant neoplasm of digestive organs; K57.30 Diverticulosis of large intestine without perforation or abscess without bleeding; R12 Heartburn; R13.10 Dysphagia, unspecified; K22.89 Other specified disease of esophagus; K31.1 Adult hypertrophic pyloric stenosis; K29.50 Unspecified chronic gastritis without bleeding; K22.70 Barrett's esophagus without dysplasia; Z98.84 Bariatric surgery status | CPT/HCPCS: 43239; G0105; 88305; 88342 ==